=== PATIENT | male | born 1955 | race African-American/Black ===

== ENCOUNTER 2018-09-15 12:26 | Outpatient (CLI) | payer MEDICARE, OTHER ==
--- NOTE | 2018-09-15 20:17 | RAD ---
LEFT SHOULDER THREE VIEWS: 09/15/18 No fracture, dislocation or AC joint widening was seen. There are prominent degenerative changes of t he AC joint with inferiorly directed osteophytes that could cause impingement. No periarticular calci fications are seen. IMPRESSION: AC joint arthritis with osteophytes. POS: HOME
== END 2018-09-15 12:27 | disposition home or self-care (01) ==
LOC: BURRAD 12:26
PROVIDERS: ATTEND Family Medicine
DX: M25.512 Pain in left shoulder (principal); G89.29 Other chronic pain; M19.012 Primary osteoarthritis, left shoulder; M25.712 Osteophyte, left shoulder